=== PATIENT | female | born 1955 | race Caucasian/White ===

== ENCOUNTER 2016-08-15 18:37 | Emergency (ER) | payer BC | END 2016-08-15 20:50 | disposition home or self-care (01) | LOC: ER 18:37 | PROC: 2W3SXYZ Immobilization of Right Foot using Other Device (ICD-10-PCS; principal; 2016-08-15) | DX: S92.351A Displaced fracture of fifth metatarsal bone, right foot, initial encounter for closed fracture (principal); F32.9 Major depressive disorder, single episode, unspecified; F41.9 Anxiety disorder, unspecified; Z88.1 Allergy status to other antibiotic agents; Z88.5 Allergy status to narcotic agent; Z88.8 Allergy status to other drugs, medicaments and biological substances; X50.1XXA Overexertion from prolonged static or awkward postures, initial encounter | CPT/HCPCS: 73630-LT; 99283 ==